=== PATIENT | female | born 1995 | race Native Hawaiian/Other Pacific Islander ===

== ENCOUNTER 2016-11-05 14:56 | Emergency (ER) | payer MEDICAID, OTHER ==
[~2016-11-05] VITALS: Ht 162.6 cm; Wt 97.5 kg
[2016-11-05 15:09] VITALS: BP 122/77
== END 2016-11-05 17:02 | disposition home or self-care (01) ==
LOC: ER 15:05
DX: J01.90 Acute sinusitis, unspecified (principal); J02.9 Acute pharyngitis, unspecified